=== PATIENT | male | born 2000 | race Asian ===

== ENCOUNTER 2018-06-27 14:43 | Outpatient (CLI) | payer OTHER ==
[~2018-06-27 14:43] MED LIST: AMOX875T8 PO; CEPACOL SORE TH1 LOZ MT; LORA10TA3 PO; PRED10TA27 PO; Z-PAK PO
== END 2018-06-27 22:40 | disposition home or self-care (01) ==
LOC: US 14:43
DX: R10.32 Left lower quadrant pain (principal)